=== PATIENT | male | born 1950 | race Caucasian/White ===

== ENCOUNTER 2022-02-05 11:18 | Day surgery (SDC) | payer MEDICARE, BC ==
[2022-01-30 11:13] LABS: BASOPHILS % (AUTO) 0.5 % (0-1); EOSINOPHILS # (AUTO) 0.1 X10'3 (0-0.9); EOSINOPHILS % (AUTO) 1.4 % (0-6); LYMPHOCYTES # (AUTO) 1.3 X10'3 (1.1-4.8); LYMPHOCYTES % (AUTO) 16.4 % (21-51); MEAN CORPUSCULAR HEMOGLOBIN 29.7 PG (27.0-31.0); MEAN CORPUSCULAR HGB CONC 34.1 g/dL (33.0-36.5); MEAN CORPUSCULAR VOLUME 87.3 FL (78-98); MEAN PLATELET VOLUME 6.9 FL (7.4-10.4); MONOCYTES # (AUTO) 0.8 X10'3 (0-0.9); MONOCYTES % (AUTO) 10.1 % (2-12); NEUTROPHILS # (AUTO) 5.7 X10'3 (1.8-7.7); NEUTROPHILS % (AUTO) 71.6 % (42-75); PRE OP HEMATOCRIT 44.1 % (42.0-52.0); PRE OP PLATELET COUNT 279 X10'3 (140-440); RED BLOOD COUNT 5.05 X10'6 (4.70-6.10); RED CELL DISTRIBUTION WIDTH 13.2 % (11.5-14.5)
[2022-01-30 11:29] LABS: ALBUMIN 3.8 G/DL (3.4-5.0); ALBUMIN/GLOBULIN RATIO 0.9 (1.1-1.5); ALKALINE PHOSPHATASE 58 IU/L (46-116); BLOOD UREA NITROGEN 14 MG/DL (7-18); BUN/CREATININE RATIO 14.9 (5.4-32.0); CHLORIDE 104 MMOL/L (99-107); CREATININE 0.94 MG/DL (0.60-1.10); PRE OP ALT 32 U/L (30-65); PRE OP ANION GAP 6 (8-16); PRE OP AST 27 U/L (10-37); PRE OP BILIRUB, TOTAL 0.4 MG/DL (0.0-1.0); PRE OP GLUCOSE 114 MG/DL (70-104); PRE OP POTASSIUM 4.2 MMOL/L (3.4-5.1); PRE OP SODIUM 140 MMOL/L (135-145); TOTAL CARBON DIOXIDE 29.8 MMOL/L (24-32); eGFR 79 ML/MIN
[2022-02-05] VITALS (22 sets, daily range): BP systolic 102–158; BP diastolic 42–87
[~2022-02-05] VITALS: Ht 180.3 cm; Wt 81.9 kg
[~2022-02-05 11:18] MED LIST: NO HOME MEDS; ceFAZolin inj. 2,000 MG in dextrose 5%-water 100 ML IV ONE; famotidine 20mg tablet PO ONE; ringers solution, lacted 1,000 ML IV SCH
[2022-02-05] MEDS ORDERED: fentaNYL/PF 50MCG/1 ML 2ML syringe ONE (13:10)
[2022-02-05] MEDS ORDERED: LIDOcaine 1% 30ml preserv. free vial ONE (13:45)
[2022-02-05] MEDS ORDERED: BUPIVAcaine/PF 2.5mg/ml (0.25%) 10ml vial ONE (13:45)
[2022-02-05] MEDS ORDERED: ondansetron/PF 4mg/2ml inj IV PRN (15:00)
[2022-02-05] MEDS ORDERED: hydrALAZINE 20mg/ml inj. IV PRN (15:00)
[2022-02-05] MEDS ORDERED: labetalol 5mg/ml 20ml inj. IV PRN (15:00)
[2022-02-05] MEDS ORDERED: ringers solution, lacted 1,000 ML IV SCH (15:00)
[2022-02-05] MEDS ORDERED: morphine 2 MG/ML inj. syringe IV PRN (15:00)
[2022-02-05] MEDS ORDERED: HYDROmorphone/PF 0.2 MG/ML SYRINGE IV PRN ×2 (15:00)
[2022-02-05] MEDS ORDERED: LIDOcaine 1%/PF 5ML 10 MG/ML VIAL ONE (15:21)
[2022-02-05] MEDS ORDERED: propofol inj 20 ML IV ONE (15:21)
[2022-02-05] MEDS ORDERED: acetaminophen 1,000mg/100ml IV 100 ML IV ONE (15:21)
[2022-02-05] MEDS ORDERED: ondansetron/PF 4mg/2ml inj ONE (15:21)
[2022-02-05] MEDS ORDERED: dexamethasone sod phosphate 4mg/ml inj. ONE (15:21)
[2022-02-05] MEDS ORDERED: rocuronium 10mg/ml inj IV ONE (15:21)
[2022-02-05] MEDS ORDERED: sugammadex 200mg/2ml injection IV ONE (15:28)
--- NOTE | 2022-02-05 15:29 | NUR ---
Received from OR via [facility], accompanied by Anesthesiologist and report given by DEBBIE Anesthesiologist. PATIENT WAKING UP, DENIES PAIN, V/S WNL, PIV 20G RIGHT FOREARM, BANDAID LAPS SITES C/D/I TO ABDOMEN. Addendum: 02/05/22 at 1629 by Miah Sanchez RN Amended: Links added.
[2022-02-05] MEDS: morphine 4 MG/ML inj SYRINge IV PRN ×2 (15:44→16:24)
[2022-02-05] MEDS ORDERED: HYDROcodone/acetaminophen 5mg/325mg tablet PO PRN (15:50)
--- NOTE | 2022-02-05 17:00 | NUR ---
PERFORMED BLADDER SCANNER AND 700 CC OF URINE NOTED. PATIENT UNSUCCESSFULLY ATTEMPTED TO URINATE. PATIENT STATED THAT HE WILL TRY AGAIN LATER. Addendum: 02/05/22 at 1812 by Miah Sanchez RN Amended: Links added. Addendum: 02/05/22 at 1850 by Miah Sanchez RN PERFORMED BLADDER SCANNER AND 700 CC OF URINE NOTED. PATIENT UNSUCCESSFULLY ATTEMPTED TO URINATE. PT REFUSED TO HAVE CARLSON CATHETER NOW. PATIENT STATED THAT HE WILL TRY AGAIN LATER.
--- NOTE | 2022-02-05 18:30 | NUR ---
INSERTED CARLSON CATHETER AND NOTED 900 CC OF CLEAR YELLOW URINE. NO S/S OF DISCOMFORT AT THIS TIME.
--- NOTE | 2022-02-05 19:29 | NUR ---
F/C PLACED PER PROTOCOL WITH NO COMPLICATIONS DUE TO PATIENT BEING UNABLE TO VOID AND OVER 350CC IN BLADDER SCAN. GOOD OUTPUT OF URINE FROM F/C WITH CLEAR YELLOW URINE. I HAVE DEMONSTRATED F/C CARE AND PATIENT HAS VERBALIZED UNDERSTANDING ON HOME CARE. EDUCATION PACKET GIVEN TO PATIENT WELL FOR F/C MANAGEMENT FOR HOME. PATIENT AGREES HE WILL CALL DR VENEGAS OFFICE IN AM FOR F/C D/C APPT IN OFFICE. ALL DISCHARGE CRITERIA HAS BEEN MET. VSS, PAIN AT A TOLERABLE LEVEL, ABLE TO SAFELY AMBULATE AND TRANSFER SELF. IV TAKEN OUT WITHOUT ANY COMPLICATIONS. ALL DISCHARGE INSTRUCTIONS COVERED WITH PATIENT AND ALL QUESTIONS ANSWERED. PATIENT TAKEN OUT VIA WHEELCHAIR WITH ALL BELONGINGS TO PERSONAL VEHICLE WHERE FAMILY DROVE PATIENT HOME. Addendum: 02/05/22 at 1935 by Miah Sanchez RN Amended: Links added.
== END 2022-02-05 19:29 | disposition home or self-care (01) ==
LOC: PAS 11:18
PROVIDERS: ATTEND Surgery
DX: K42.9 Umbilical hernia without obstruction or gangrene (principal); K40.90 Unilateral inguinal hernia, without obstruction or gangrene, not specified as recurrent; Z79.899 Other long term (current) drug therapy; Z85.46 Personal history of malignant neoplasm of prostate
CPT/HCPCS: 36415; 49585; 49650; 80053; 82948; 85025; 93005; C1781; J0131; J0690; J1100; J1170; J2270; J2405; J2704; J3010; J3490; J7030; J7060; J7120; Z7506; Z7508; Z7512; A4215; A4615; A4618